=== PATIENT | male | born 1985 | race Two or more races ===

== ENCOUNTER 2019-11-15 19:16 | Emergency (ER) | payer SELFPAY ==
[~2019-11-15] VITALS: Ht 172.7 cm; Wt 82.6 kg
[2019-11-15] MEDS ORDERED: HYDROcodone/APAP 5/325 TABLET PO STA (20:01)
[2019-11-15] MEDS ORDERED: HYDROcodone/APAP 5/325 TABLET ONE (20:07)
[2019-11-15 20:14] LABS: BASOPHILS # (AUTO) 0.05 x10^3/uL (0-0.1); BASOPHILS % (AUTO) 1 % (0-1); EOSINOPHILS # (AUTO) 0.19 x10^3/uL (0-0.4); EOSINOPHILS % (AUTO) 2 % (1-7); LYMPHOCYTES # (AUTO) 1.74 x10^3/uL (1-3.4); LYMPHOCYTES % (AUTO) 18 % (22-44); MD NO; MEAN CORPUSCULAR HEMOGLOBIN 32.4 pg (27.5-34.5); MEAN CORPUSCULAR HGB CONC 33.7 g/dL (33.2-36.2); MEAN CORPUSCULAR VOLUME 96.1 fL (81-97); MEAN PLATELET VOLUME 10.5 fL (7.4-10.4); MONOCYTES # (AUTO) 0.43 x10^3/uL (0.2-0.8); MONOCYTES % (AUTO) 5 % (2-9); NEUTROPHILS # (AUTO) 7.15 x10^3/uL (1.8-6.8); NEUTROPHILS % (AUTO) 75 % (42-75); PLATELET COUNT 173 x10^3/uL (130-400); RED BLOOD COUNT 4.94 x10^6/uL (4.38-5.82); RED CELL DISTRIBUTION WIDTH 13.2 % (9.4-14.8)
--- NOTE | 2019-11-15 20:16 | NUR ---
PT HERE FOR TESTICULAR PAIN X SEVERAL DAYS. PT TO BATHROOM FOR UA, PT MEDICATED FOR PAIN.
[2019-11-15 20:26] LABS: ALBUMIN 4.3 g/dL (3.4-5.0); ANION GAP 7 mmol/L (5-15); CALCIUM 8.9 mg/dL (8.5-10.1); CHLORIDE 110 mmol/L (98-107); CREATININE 0.96 mg/dL (0.7-1.3)
--- NOTE | 2019-11-15 20:26 | NUR ---
UA SENT TO LAB. PT TO US.
[2019-11-15 20:40] LABS: MICROSCOPIC INDICATED
[2019-11-15 20:47] LABS: CULTURE INDICATED? NO
[2019-11-15 21:10] VITALS: BP 127/72
--- NOTE | 2019-11-15 22:07 | NUR ---
Patient given discharge instructions and they have confirmed that they understand the instructions. Patient ambulatory with steady gait.
== END 2019-11-15 22:09 | disposition home or self-care (01) ==
LOC: ED 20:18
DX: N43.3 Hydrocele, unspecified (principal); F17.210 Nicotine dependence, cigarettes, uncomplicated
CPT/HCPCS: 36415; 76870; 80048; 81001; 82040; 85025; 99284